=== PATIENT | male | born 1980 | race Caucasian/White ===

== ENCOUNTER 2025-09-06 09:38 | Emergency (ER) | payer MEDICAID, SELFPAY ==
[2025-09-06 09:40] VITALS: BMI 25.8
[2025-09-06 09:54] VITALS: BP 154/76; PULSE 88; RESP 16; TEMP 36.6; O2SAT 100
--- NOTE | 2025-09-06 10:00 | EDNOTE_ITS ---
ED Back Injury Pain RME/HPI General Chief Complaint: Back Pain/Injury Stated Complaint: BACK PAIN Time Seen by Provider: 09/06/25 09:58 Arrival date/time: 09/06/25 09:38 45-year-old male presents to the Emergency Department today send he works at a [employer] patient reports he was lifting something and felt a pain in his left mid back patient reports no saddle anesthesia no loss of bowel or bladder no fever nausea or vomiting Limitations: no limitations Related Data Previous Rx's ?Medication ?Instructions ?Recorded cyclobenzaprine 10 mg tablet 10 mg PO TID PRN muscle s pasm 10 09/06/25 days #30 tab-caps ibuprofen 800 mg tablet 800 mg PO TID PRN pain #30 t abs 09/06/25 Allergies Allergy/AdvReac Type Severity Reaction Status Date / Time No Known Allergies Allergy Unknown Uncoded 09/06/25 09:40 Review of Systems Review of Systems Systems Reviewed: All systems reviewed, normal except as documented Constitutional Constitutional: Reports system reviewed and no additional complaints, except as documented, Denies fever(s) and Denies headache(s) Eyes Eyes: Reports system reviewed and no additional complaints, except as documented and Denies blurry vision ENT Ears, Nose, Mouth, and Throat: Reports system reviewed and no additional complaints, except as documented, Denies headache(s), Denies nasal congestion and Denies nasal discharge Cardiovascular Cardiovascular: Reports system reviewed and no additional complaints, except as documented, Denies chest pain and Denies dyspnea Respiratory Respiratory: Reports system reviewed and no additional complaints, except as documented, Denies chest congestion, Denies cough and Denies dyspnea Gastrointestinal Gastrointestinal: Reports system reviewed and no additional complaints, except as documented and Denies abdominal pain Musculoskeletal Musculoskeletal: Reports system reviewed and no additional complaints, except as documented and Reports back pain Integumentary/Breasts Skin/Breast: Reports system reviewed and no additional complaints, except as documented and Denies rash Neurologic Neurologic: Reports system reviewed and no additional complaints, except as documented, Reports as per HPI and Denies headache(s) Past Medical History Social History SMOKING STATUS: Current some day smoker ED Exam General Limitations: Present no limitations General appearance: Present alert and in no apparent distress Head Head exam: Present atraumatic, normocephalic and normal inspection Eye Eye exam: Present normal appearance, PERRL and EOMI; Absent conjunctival injection ENT ENT exam: Present normal exam, normal oropharynx and mucous membranes moist Neck Neck exam: Present normal inspection, full ROM and trachea midline Chest Chest inspection: Present normal inspection and symmetric chest wall rise Respiratory Respiratory exam: Present normal lung sounds bilaterally Cardiovascular Cardiovascular exam: Present regular rate, normal rhythm and normal heart sounds Abdominal Exam Abdominal exam: Present soft and normal bowel sounds; Absent distention, tenderness, guarding, rebound or rigidity Extremities Exam Extremities exam: Present normal inspection and full ROM Back Exam Back exam: Present normal inspection and full ROM Back 1 view image: 2 1. Back pain Neurological Exam Neurological exam: Present alert, oriented X3 and CN II-XII intact Psychiatric Psychiatric exam: Present normal affect and normal mood Skin Skin exam: Present warm, dry, intact and normal color Course Quality Measures none Orders Category Date Time Status XR chest 2V Stat Exams 09/06/25 10:14 Completed Vital Signs Vital signs: Vital Signs Temperature 97.8 F 09/06/25 09:54 Pulse Rate 88 09/06/25 09:54 Respiratory Rate 16 09/06/25 09:54 Blood Pressure 154/76 H 09/06/25 09:54 Pulse Oximetry (%) 100 09/06/25 09:54 Oxygen Delivery Method Room Air 09/06/25 09:54 O2 saturation 100% room air within normal limit Back Pain / Injury MDM Narrative MDM Narrative:: 45-year-old male presents to the Emergency Department today send he works at a [employer] patient reports he was lifting something and felt a pain in his left mid back patient reports no saddle anesthesia no loss of bowel or bladder no fever nausea or vomiting Clinically patient well-appearing does not appear ill or toxic symptoms highly consistent with muscle spasm/muscle strain Patient be treated symptomatically with course of Flexeril and ibuprofen and should symptoms persist or worsen instructed to return immediately for further evaluation Patient was discharged and then the patient asked for an x-ray of his chest because he has been around [employer] for his whole life X-ray was obtained for the patient x-ray does not show any acute abnormality Patient in for further care Patient discharged home in no distress to follow-up with primary care doctor in the next 24 to 48 hours and for any worsening symptoms to return to the ER immediately Patient data External records reviewed:: [facility] previous records Clinical information provided by:: patient Social determinants that could affect healthcare access:: none Patient has the following chronic illnesses:: None How is presenting disease/condition affected by chronic disease/condition?: no chronic disease Evaluation data The following diagnostics were reviewed and interpreted by me:: radiology exam(s) Lab and/or radiology exams considered but not ordered:: Radiology obtained Interpretation Summary: Reviewed by me Medications / Prescriptions Medications or Prescriptions considered but not ordered:: Given Medication administrations:: Given Consultations Consultation(s) initiated? (list below): No Diagnosis Differential diagnosis back pain/injury: lumbar radiculopathy, sciatica and strain of lumbar region Most likely diagnosis given after review of the tests above:: Back pain Admission Indicated Admission indicated?: not indicated Admission Request Was there a request for admission?: No Disposition Plan Disposition Plan: Discharge Discharge Attestation Discharge Attestation: The patient and all family members were given an opportunity to ask questions and understood the discharge instructions. Discharge instructions specifically effects, indications for sooner follow up or return to the emergency department, and the expected course of current diagnosis. Patient condition: Stable Discharge Plan Plan Patient Disposition: HOME (Self Care) Discharge Disposition comment: Stable Prescriptions/Referrals Prescriptions/Med Rec: New cyclobenzaprine 10 mg tablet 10 mg PO TID PRN (Reason: muscle spasm) 10 Days Qty: 30 0RF ibuprofen 800 mg tablet 800 mg PO TID PRN (Reason: pain) Qty: 30 0RF Problem List Clinical Impression: Thoracic back pain Patient/Caregiver Discharge Instructions Education Materials: Anatomy of a Normal Spine Additional Instructions: Please follow up with your primary care doctor in the next 24-48hrs for any worsening symptoms return here immediately Print Language: Turkish Stand Alone Forms: Ya Award Info., Patient Portal Info Letter PA/HIRAM Supervising Physician DERRICK/HIRAM Supervising Physician: Dr. Guajardo
--- NOTE | 2025-09-06 10:14 | XR_ITS ---
EXAMINATION: XR chest 2V ORDERING PROVIDER: Judah Davidson (DECK [facility]), [facility] HISTORY: Cough TECHNIQUE: PA and Lateral radiographs of the chest. COMPARISON: 01/26/2006 radiograph. FINDINGS: Lungs: Clear. Pleura: No pneumothorax or pleural effusion. Cardiomediastinal Silhouette: Normal. Soft Tissues/Bones: Normal. IMPRESSION: No acute pulmonary findings.
== END 2025-09-06 11:40 | disposition home or self-care (01) ==
LOC: SERX 10:13
PROVIDERS: Emergency Provider Emergency Medicine; PCP Family Medicine
DX: M54.6 Pain in thoracic spine (principal); R05.9 Cough, unspecified; X50.9XXA Other and unspecified overexertion or strenuous movements or postures, initial encounter; Y93.89 Activity, other specified; Y99.0 Civilian activity done for income or pay
CPT/HCPCS: 71046; 99282